=== PATIENT | female | born 1995 | race Caucasian/White ===

== ENCOUNTER 2018-06-16 11:45 | Emergency (ER) | payer SELFPAY ==
[2018-06-16 11:54] VITALS: BP 151/100
[2018-06-16] MEDS ORDERED: ACETAMINOPHEN 325 MG TABLET PO ONE (12:01)
[2018-06-16] MEDS ORDERED: IPRATROPIUM/ALBUTEROL 0.5-2.5 MG/3 ML AMPUL NEB ONE (12:04)
--- NOTE | 2018-06-16 12:07 | ER Document Report ---
HPI - HPI Time Seen by Provider: 06/16/18 12:00 Pain Level: Denies Notes: Patient is a 23-year-old female who presents to the ED complaining of nasal congestion/discharge, dry nonproductive cough, fever, body ache 3 days. She has had some posttussive emesis associated. Patient states that she is still eating and drinking without difficulties, but does have a decreased p.o. intake. She is still urinating normally having normal bowel movements. Patient has been u sing some [id number] meds for symptoms. She denies any significant past medical history including cardiopulmonary history and immunocompromised conditions aside from asthma hx. Patient denies any smoking or IV drug use. Patient requesting work note. Denies any current headache, neck pain, sore throat, chest pain, palpitations, syncope, shortness of breath, dyspnea, abdominal pain, nausea/diarrhea, urinary retention, dysuria, hematuria, or rash. - ROS Systems Reviewed and Negative: Yes All other systems reviewed and negative - REPRODUCTIVE LMP: now Reproductive: DENIES: : Past Medical History - Social History Smoking Status: Never Smoker Family History: Reviewed & Not Pertinent Vertical Provider Document - CONSTITUTIONAL Agree With Documented VS: Yes Notes: PHYSICAL EXAMINATION: GENERAL: Well-appearing, well-nourished and in no acute distress. A&Ox4. Answers questions appropriately. Moves comfortably w/o notable distress HEAD: Atraumatic, normocephalic. EYES: Pupils equal round and reactive to light, extraocular movements intact, sclera anicteric, conjunctiva are normal. ENT: EAC clear b/l. TM's intact b/l without erythema, fluid, or perforation. Nares patent and with clear discharge. oropharynx no erythema without exudates. No tonsilar hypertrophy without erythema or exudate. No palatine shift. Uvula midline. No tongue protrusion. No drooling, hoarseness, or airway compromise. Moist mucous membranes. No sinus tenderness. NECK: Normal range of motion, supple without lymphadenopathy. No rigidity/meningismus. LUNGS: Very minimal wheeze, expiratory. No crackles. No retractions HEART: Regular rate and rhythm without murmurs, rubs, gallops. ABDOMEN: Soft, nontender, nondistended abdomen. No guarding, no rebound. Normal bowel sounds present. No CVA tenderness bilaterally. NEUROLOGICAL: Normal speech, normal gait. Normal sensory, motor exams PSYCH: Normal mood, normal affect. SKIN: Warm, Dry, normal turgor, no rashes or lesions noted. - INFECTION CONTROL TRAVEL OUTSIDE OF THE [place] IN LAST 30 DAYS: No Course - Re-evaluation Re-evalutation: 06/16/18 12:40 Patient is an afebrile, well-hydrated, 23-year-old female who presents to the ED with acute URI, suspect influenza. Vitals are acceptable. PE is otherwise unremarkable. No labs or imaging warranted at this time based on H&P. Patient has no significant cardiopulmonary or immunocompromised medical conditions. Pt did receive a duoneb tx and tylenol. Patient's lungs are clear to auscultation bilaterally without tachycardia, hypoxia, or tachypnea. Patient is tolerating p.o. without any difficulties. Thoroughly reviewed the risks, benefits, potential side effects, estimated cost without insurance with patient. After thorough review, patient requested Tamiflu at this time. Low suspicion for any meningitis, sepsis, peritonsillar/pharyngeal abscess, respiratory compromise, severe dehydration, or other emergent systemic condition at this time. Patient is aware this condition can change from initial presentation and she needs to monitor symptoms closely. Conservative measures otherwise for symptoms. Pt has an inhaler at home. Recheck with your PCM in 3-5 days. Return to the ED with any worsening/concerning symptoms otherwise as reviewed in discharge. Patient is in agreement. - Vital Signs Vital signs: Temp Pulse Resp BP Pulse Ox 102.7 F H 91 24 H 151/100 H 99 06/16/18 11:52 06/16/18 11:52 06/16/18 11:52 06/16/18 11:52 06/16/18 11:52 Discharge - Discharge Clinical Impression: Acute URI Condition: Stable Disposition: HOME, SELF-CARE Additional Instructions: Maintain adequate fluid intake Take meds as directed tylenol/ibuprofen as needed over the counter cold medication as needed for symptoms Humidified air may help Wash your hands regularly Wear a mask when coughing F/u: with your PCM in 3-5 days for a recheck Return to the ED with any fever, worsening pain, chest pain, palpitations, syncope, worsening ABDUL, neck pain/stiffness, shortness of breath, wheezing, drooling, trouble swallowing/breathing, abdominal pain, n/v/d, rash, or worsening/concerning symptoms otherwise. Prescriptions: Ondansetron [Zofran Odt 4 mg Tablet] 1 - 2 tab PO Q4H PRN #15 tab.rapdis PRN Reason: For Nausea/Vomiting Oseltamivir Phosphate [Tamiflu 75 mg Capsule] 75 mg PO BID #10 capsule Forms: Return to Work Referrals: [facility] [Provider Group] - Follow up as needed [facility] [Provider Group] - Follow up as needed
== END 2018-06-16 12:10 | disposition home or self-care (01) ==
LOC: ER 11:45
DX: J06.9 Acute upper respiratory infection, unspecified (principal); R09.81 Nasal congestion; R09.89 Other specified symptoms and signs involving the circulatory and respiratory systems; R05 Cough; R50.9 Fever, unspecified; M79.10 Myalgia, unspecified site; R11.10 Vomiting, unspecified; R63.0 Anorexia
CPT/HCPCS: 94640; 99283; J7620

== ENCOUNTER 2018-06-19 11:50 | Emergency (ER) | payer SELFPAY ==
[2018-06-19] MEDS ORDERED: NORMAL SALINE 1000 ML 1,000 ML IV ONE (12:52)
[2018-06-19] MEDS ORDERED: METHYLPREDNISOLONE INJ 125 MG/2 ML SDV IV ONE (12:53)
[2018-06-19] MEDS ORDERED: MAGNESIUM SULFATE/D5W 1 GM/100 ML RTUPB IV ONE (12:53)
--- NOTE | 2018-06-19 12:55 | ER Document Report ---
ED General - General Chief Complaint: Flu Symptoms Stated Complaint: FLU SYMPTOMS Time Seen by Provider: 06/19/18 12:30 Primary Care Provider: [facility] [Provider Group] - Follow up as needed (Call for next available appointment.) Mode of Arrival: Ambulatory Information source: Patient Notes: This is a 23-year-old female with a history of asthma and a recent URI (treated for influenza) who presents to the emergency room with worsening shortness of br eath, wheezing and difficulty breathing. TRAVEL OUTSIDE OF THE [place] IN LAST 30 DAYS: No - HPI Onset: Last week Onset/Duration: Gradual Quality of pain: No pain Severity: None Pain Level: Denies Associated symptoms: Shortness of breath, Other. denies: Chest pain, Fever Exacerbated by: Movement Relieved by: Denies Similar symptoms previously: Yes Recently seen / treated by doctor: Yes - Related Data Allergies/Adverse Reactions: No Known Allergies Allergy (Verified 06/19/18 11:54) Past Medical History - General Information source: Patient - Social History Smoking Status: Never Smoker Cigarette use (# per day): No Chew tobacco use (# tins/day): No Frequency of alcohol use: None Drug Abuse: None Lives with: Spouse/Significant other Family History: Reviewed & Not Pertinent Patient has suicidal ideation: No Patient has homicidal ideation: No - Past Medical History Cardiac Medical History: Reports: None Pulmonary Medical History: Reports: Hx Asthma Neurological Medical History: Reports: None Endocrine Medical History: Reports: None Renal/ Medical History: Reports: None. Denies: Hx Peritoneal Dialysis GI Medical History: Reports: None Musculoskeletal Medical History: Reports None Skin Medical History: Reports None Psychiatric Medical History: Reports: None Traumatic Medical History: Reports: None Infectious Medical History: Reports: None Surgical Hx: Negative Review of Systems - Review of Systems Constitutional: Chills. denies: Fever EENT: Nose pain, Nose congestion Cardiovascular: denies: Chest pain, Palpitations, Heart racing Respiratory: Cough, Short of breath, Wheezing Gastrointestinal: denies: Abdomen distended, Abdominal pain, Diarrhea Genitourinary: No symptoms reported Female Genitourinary: No symptoms reported Musculoskeletal: No symptoms reported Skin: No symptoms reported Hematologic/Lymphatic: No symptoms reported Neurological/Psychological: No symptoms reported Physical Exam - Vital signs Vitals: Temp Pulse Resp BP Pulse Ox 98.3 F 104 H 18 134/98 H 95 06/19/18 11:53 06/19/18 11:53 06/19/18 11:53 06/19/18 11:53 06/19/18 11:53 Notes: Physical exam: GENERAL: A 23-year-old female, alert and oriented x3, wheezing HEAD: Atraumatic, normocephalic. EYES: Pupils equal round and reactive to light, extraocular movements intact, sclera anicteric, conjunctiva are normal. ENT: TMs normal, nares patent, oropharynx clear without exudates. Moist mucous membranes. NECK: Normal range of motion, supple without obvious mass or JVD. LUNGS: Bilateral wheezing HEART: Regular rate and rhythm without murmurs, rubs or gallops. ABDOMEN: Soft, normoactive bowel sounds. No tenderness to palpation. No guarding, no rebound. No masses appreciated. EXTREMITIES: Normal range of motion, no pitting or edema. No clubbing or cyanosis. NEUROLOGICAL: Cranial nerves II through XII grossly intact. Normal speech, moving all extremities. PSYCH: Normal mood, normal affect. SKIN: Warm, Dry, normal turgor, no rashes or lesions noted. Course - Re-evaluation Re-evalutation: 06/19/18 18:05 Patient reevaluated after nebulizers, IV steroids, IV magnesium: Patient states she feels much better. She has ambulated around the ER. Lung exam much improved. Patient states she is feels good enough to go home. We will send her home on antibiotics, steroids, albuterol inhaler. She does have a nebulizer at home. - Vital Signs Vital signs: Temp Pulse Resp BP Pulse Ox 98.3 F 104 H 18 134/98 H 95 06/19/18 11:53 06/19/18 11:53 06/19/18 11:53 06/19/18 11:53 06/19/18 11:53 - Laboratory Result Diagrams: 06/19/18 13:34 06/19/18 13:34 Laboratory results interpreted by me: 06/19/18 13:34 RDW 14.7 H - Diagnostic Test Radiology reviewed: Image reviewed, Reports reviewed - Chest x-ray shows early infiltrate on lateral film Discharge - Discharge Clinical Impression: Asthma exacerbation, Pneumonia Condition: Stable Disposition: HOME, SELF-CARE Additional Instructions: As we discussed, the chest x-ray showed evidence of an early pneumonia. I want you to take the antibiotics as prescribed: Start tomorrow (you were given today's dose in the ER). Take the prednisone which is a steroid as prescribed (start tomorrow, you given today's dose in the ER). Continue albuterol nebulizers as needed. Use the albuterol inhaler as needed. Return to the emergency room for worsening shortness of breath, difficulty breathing or any concerns or getting worse. Prescriptions: Azithromycin [Zithromax 250 mg Tablet] 250 mg PO ASDIR PRN #6 tablet PRN Reason: Prednisone [Deltasone 20 mg Tablet] 3 tab PO DAILY 5 Days tablet Forms: Return to Work Referrals: [facility] [Provider Group] - Follow up as needed (Call for next available appointment.)
[2018-06-19] MEDS ORDERED: IPRATROPIUM/ALBUTEROL 0.5-2.5 MG/3 ML AMPUL NEB ONE ×3 (13:15→16:46)
--- NOTE | 2018-06-19 13:24 | RADIOLOGY REPORT (SQ) ---
EXAM DESCRIPTION: CHEST 2 VIEWS COMPLETED DATE/TIME: 06/19/2018 1:05 pm REASON FOR STUDY: sob COMPARISON: None. EXAM PARAMETERS: NUMBER OF VIEWS: two views TECHNIQUE: Digital Frontal and Lateral radiographic views of the chest acquired. RADIATION DOSE: NA LIMITATIONS: none FINDINGS: LUNGS AND PLEURA: Patchy increased density in the left mid-lower lung zones, suggest infi ltrates. The right lung is clear. No pneumothorax or pleural effusion. MEDIASTINUM AND HILAR STRUCTURES: No masses or contour abnormalities. HEART AND VASCULAR STRUCTURES: Heart normal size. No evidence for failure. BONES: No acute findings. HARDWARE: None in the chest. OTHER: No other significant finding. IMPRESSION: 1. Patchy increased densities in the left mid-lower lung zones, suggest infiltrates. COMMENT: 1. The results of this examination were discussed with emergency department provider on 04/2019 at 13:18 hours. TECHNICAL DOCUMENTATION: JOB ID: [id number] [employer]- All Rights Reserved Reading location - IP/workstation name: [email or web address]
[2018-06-19 13:41] LABS: ABSOLUTE EOSINOPHILS # (AUTO) 0.1 10^3/uL (0.0-0.6); ABSOLUTE LYMPHOCYTES (AUTO) 1.2 10^3/uL (0.5-4.7); ABSOLUTE MONOCYTES (AUTO) 0.6 10^3/uL (0.1-1.4); ABSOLUTE NEUT (AUTO) 6.7 10^3/uL (1.7-8.2); BASOPHILS % (AUTO) 0.3 % (0-2); EOSINOPHILS % (AUTO) 1.2 % (0-6); HEMATOCRIT 36.7 % (36.0-47.0); HEMOGLOBIN 12.4 g/dL (12.0-15.5); LYMPHOCYTES % (AUTO) 13.6 % (13-45); MEAN CORPUSCULAR HEMOGLOBIN 27.2 pg (27.0-33.4); MEAN CORPUSCULAR HGB CONC 33.6 g/dL (32.0-36.0); MEAN CORPUSCULAR VOLUME 81 fl (80-97); MONOCYTES % (AUTO) 7.4 % (3-13); PLATELET COUNT 260 10^3/uL (150-450); RED BLOOD COUNT 4.54 10^6/uL (3.72-5.28); RED CELL DISTRIBUTION WIDTH 14.7 % (11.5-14.0); SEGMENTED NEUTROPHILS % (AUTO) 77.5 % (42-78); TOTAL CELLS COUNTED % (AUTO) 100 %; WHITE BLOOD COUNT 8.7 10^3/uL (4.0-10.5)
[2018-06-19 13:52] LABS: ALANINE AMINOTRANSFERASE 23 U/L (9-52); ALBUMIN 4.5 g/dL (3.5-5.0); ALKALINE PHOSPHATASE 71 U/L (38-126); ANION GAP 13 (5-19); ASPARTATE AMINO TRANSFERASE 35 U/L (14-36); BILIRUBIN,DIRECT 0.2 mg/dL (0.0-0.4); BILIRUBIN,TOTAL 0.3 mg/dL (0.2-1.3); BLOOD UREA NITROGEN 9 mg/dL (7-20); CALCIUM 9.5 mg/dL (8.4-10.2); CARBON DIOXIDE 27 mmol/L (22-30); CHLORIDE 102 mmol/L (98-107); GLUCOSE 93 mg/dL (75-110); POTASSIUM 4.5 mmol/L (3.6-5.0); SODIUM 141.7 mmol/L (137-145); TOTAL PROTEIN 7.8 g/dL (6.3-8.2)
[2018-06-19] MEDS ORDERED: AZITHROMYCIN 250 MG TABLET PO ONE (17:58)
[2018-06-19] MEDS ORDERED: ALBUTEROL SULFATE HFA (90 MCG/PUFF) 8 GM MDI (1 MDI/ER DISP) IH PRN (18:00)
[2018-06-19 18:09] VITALS: BP 138/88
== END 2018-06-19 18:08 | disposition home or self-care (01) ==
LOC: ER 11:50
DX: J45.901 Unspecified asthma with (acute) exacerbation (principal); J18.9 Pneumonia, unspecified organism; R06.02 Shortness of breath; R05 Cough; R68.83 Chills (without fever)
CPT/HCPCS: 94640 ×2; 99285; 96361; 96374; 96375; 36415; 84702; 85025; 80053; 71046; J2930; J3475; J7030; J3490; J7620

== ENCOUNTER 2018-09-04 13:30 | Emergency (ER) | payer SELFPAY ==
[2018-09-04 13:41] VITALS: BP 142/102
[2018-09-04] MEDS ORDERED: DIPH/PERTUSS(ACELL)/TETANUS VAC/PF 0.5 ML SYR (>=10YO) IM ONE (15:28)
[2018-09-04] MEDS ORDERED: IBUPROFEN 800 MG TABLET PO ONE (15:28)
--- NOTE | 2018-09-04 15:31 | ER Document Report ---
HPI - HPI Patient complains to provider of: Burn to left hand Time Seen by Provider: 09/04/18 15:10 Onset: This afternoon Onset/Duration: Sudden Quality of pain: Burning Pain Level: 5 Context: Patient states she was removing soup from the microwave and it slid off the plate burning the left palm of her hand. Patient with erythema to palmar surface of her left hand. Associated Symptoms: Other - Left hand burn Exacerbated by: Denies Relieved by: Denies Similar symptoms previously: No Recently seen / treated by doctor: No - ROS ROS below otherwise negative: Yes Systems Reviewed and Negative: Yes All other systems reviewed and negative - NEURO Neurology: DENIES: Weakness - GASTROINTESTINAL Gastrointestinal: DENIES: Nausea - REPRODUCTIVE Reproductive: DENIES: : - MUSCULOSKELETAL Musculoskeletal: REPORTS: Extremity pain. DENIES: Swelling - DERM Skin Color: Erythema Skin Problems: None Past Medical History - General Information source: Patient - Social History Smoking Status: Never Smoker Frequency of alcohol use: None Drug Abuse: None Occupation: Customer service Family History: Reviewed & Not Pertinent Pulmonary Medical History: Reports: Hx Asthma Renal/ Medical History: Denies: Hx Peritoneal Dialysis Past Surgical History: Reports: Hx Section Vertical Provider Document - CONSTITUTIONAL Agree With Documented VS: Yes Exam Limitations: No Limitations General Appearance: WD/WN, No Apparent Distress - INFECTION CONTROL TRAVEL OUTSIDE OF THE [place] IN LAST 30 DAYS: No - HEENT HEENT: Atraumatic, Normocephalic - NECK Neck: Normal Inspection - RESPIRATORY Respiratory: No Respiratory Distress - CARDIOVASCULAR Pulses: Normal: Radial - MUSCULOSKELETAL/EXTREMETIES Musculoskeletal/Extremeties: MAEW, FROM, Tender - Left hand, No Edema - NEURO Level of Consciousness: Awake, Alert, Appropriate Motor/Sensory: No Motor Deficit - DERM Integumentary: Warm, Dry Notes: Patient with superficial burn to palmar aspect of left hand. No blistering. Course - Re-evaluation Re-evalutation: 09/04/18 15:38 Patient with superficial burn to left hand. Discussed with patient wound management as well as importance of range of motion activities. Patient given contact information for the wound clinic for follow-up. - Vital Signs Vital signs: Temp Pulse Resp BP Pulse Ox 98.6 F 92 16 142/102 H 95 09/04/18 13:40 09/04/18 13:40 09/04/18 13:40 09/04/18 13:40 09/04/18 13:40 Discharge - Discharge Clinical Impression: Burn of left hand Qualifiers: Encounter type: initial encounter Burn of hand location: unspecified site Burn degree: superficial (1st degree) Qualified Code(s): T23.102A - Burn of first degree of left hand, unspecified site, initial encounter Condition: Stable Disposition: HOME, SELF-CARE Instructions: [place] ([facility]), Tetanus Immunization Given ([facility], [facility]) Additional Instructions: Return immediately for any new or worsening symptoms Followup with your primary care provider, call tomorrow to make a followup appointment Apply thin layer of ointment to wound and keep wound covered as it continues to heal. Perform full range of motion movements to the hand. Follow-up with the wound clinic for a recheck, call tomorrow for an appointment Prescriptions: Mupirocin [Bactroban 2% Ointment 22 gm] 1 applic TP TID #22 gm Naproxen [Naprosyn 250 Nmg Tablet] 1 tab PO BID #14 tablet Forms: Return to Work Referrals: [facility] [Provider Group] - Follow up tomorrow
== END 2018-09-04 16:10 | disposition home or self-care (01) ==
LOC: ER 13:30
DX: T23.152A Burn of first degree of left palm, initial encounter (principal); X19.XXXA Contact with other heat and hot substances, initial encounter; Y93.G3 Activity, cooking and baking; J45.909 Unspecified asthma, uncomplicated
CPT/HCPCS: 90471; 90715; 99283

== ENCOUNTER 2019-05-01 13:27 | Emergency (ER) | payer BC, MEDICAID ==
[2019-05-01] MEDS ORDERED: ACETAMINOPHEN 325 MG TABLET PO ONE (13:42)
--- NOTE | 2019-05-01 13:43 | ER Document Report ---
ED Medical Screen (RME) - General Chief Complaint: Leg Pain Stated Complaint: RIGHT LEG PAIN Time Seen by Provider: 05/01/19 13:37 Primary Care Provider: TOBY VAN PA-C [Primary Care Provider] - Follow up as needed Notes: Patient is a 23-year-old female presents to the emergency department with a chief complaint of right posterior ankle pain. She states that her symptoms started about a week ago. Her pain has gotten progressively worse. Denies any actual injury. Exam: Tenderness noted to the right Achilles tendon area. I have greeted and performed a rapid initial assessment of this patient. A comprehensive ED assessment and evaluation of the patient, analysis of test results and completion of medical decision making process will be conducted by an additional ED providers. TRAVEL OUTSIDE OF THE [place] IN LAST 30 DAYS: No - Related Data Allergies/Adverse Reactions: No Known Allergies Allergy (Verified 05/01/19 13:32) Past Medical History Pulmonary Medical History: Reports: Hx Asthma Renal/ Medical History: Denies: Hx Peritoneal Dialysis Past Surgical History: Reports: Hx Section Physical Exam - Vital signs Vitals: Temp Pulse Resp BP Pulse Ox 98.3 F 105 H 20 147/90 H 97 05/01/19 13:30 05/01/19 13:30 05/01/19 13:30 05/01/19 13:30 05/01/19 13:30 Course - Vital Signs Vital signs: Temp Pulse Resp BP Pulse Ox 98.3 F 105 H 20 147/90 H 97 05/01/19 13:30 05/01/19 13:30 05/01/19 13:30 05/01/19 13:30 05/01/19 13:30 Doctor's Discharge - Discharge Referrals: TOBY VAN PA-C [Primary Care Provider] - Follow up as needed
--- NOTE | 2019-05-01 14:07 | RADIOLOGY REPORT (SQ) ---
EXAM DESCRIPTION: ANKLE RIGHT COMPLETE COMPLETED DATE/TIME: 05/01/2019 1:55 pm REASON FOR STUDY: right ankle pain COMPARISON: None. NUMBER OF VIEWS: Three views. TECHNIQUE: AP, lateral, and oblique radiographic images acquired of the right ankle. LIMITATIONS: None. FINDINGS: MINERALIZATION: Normal. BONES: No acute fracture or dislocation. No worrisome bone lesions. JOINTS: No effusions. SOFT TISSUES: No soft tissue swelling. No foreign body. OTHER: No other significant finding. IMPRESSION: No fracture or dislocation of the right ankle. No radiographic findings to explain pain . TECHNICAL DOCUMENTATION: JOB ID: [id number] [employer]- All Rights Reserved Reading location - IP/workstation name: [email or web address]
--- NOTE | 2019-05-01 15:01 | RADIOLOGY REPORT (SQ) ---
EXAM DESCRIPTION: U/S EXTREMITY NONVASCULAR LTD COMPLETED DATE/TIME: 05/01/2019 2:30 pm REASON FOR STUDY: Achilles tendon pain COMPARISON: None. TECHNIQUE: Dynamic and static grayscale images acquired of the localized site of clinical concern an d recorded on PACS. Additional selected color Doppler and spectral images recorded. SITE OF CONCERN: Right Achilles tendon. LIMITATIONS: None. FINDINGS: Imaging of the right Achilles tendon shows no disruption of the tendon. There is no signi ficant fluid in the tendon sheath. IMPRESSION: Normal Achilles tendon. TECHNICAL DOCUMENTATION: JOB ID: [id number] [employer]- All Rights Reserved Reading location - IP/workstation name: [email or web address]
--- NOTE | 2019-05-01 17:23 | ER Document Report ---
ED General - General Chief Complaint: Ankle Pain Stated Complaint: RIGHT LEG PAIN Time Seen by Provider: 05/01/19 13:37 Primary Care Provider: TOBY VAN PA-C [Primary Care Provider] - Follow up as needed TRAVEL OUTSIDE OF THE [place] IN LAST 30 DAYS: No - HPI Notes: 24F w/o other established pmh, and who's been otherwise healthy, presents today to ED ambulatory in private vehicle avoiding full weight bearing to RLE since she's noticed gradual onset R posterior ankle pain and lower calf pain in last 2-3 days. works in [employer] kitchen and thinks maybe it's worse after a shift at work in which she's had to stand up for long periods, but doesn't recall inciting acute onset or preceding activity or trauma. no color changes or sensory changes or weakness. has been cont to bear weight but trying to offload some by limping mostly today and last night b/c seems gradually worse. no overlying skin changes denies local or systemic signs of infection on full review. doens't feel ankle itself is unstable. no pain at knee/hip. deneis prior orthopedic injuries or interventions/surgeries. - Related Data Allergies/Adverse Reactions: No Known Allergies Allergy (Verified 05/01/19 13:32) Home Medications: Iron Past Medical History - General Information source: Patient - Social History Smoking Status: Never Smoker Chew tobacco use (# tins/day): No Frequency of alcohol use: None Drug Abuse: None Family History: Reviewed & Not Pertinent Patient has suicidal ideation: No Patient has homicidal ideation: No Pulmonary Medical History: Reports: Hx Asthma Renal/ Medical History: Denies: Hx Peritoneal Dialysis Past Surgical History: Reports: Hx Section Review of Systems - Review of Systems Constitutional: No symptoms reported EENT: No symptoms reported Cardiovascular: No symptoms reported Respiratory: No symptoms reported Gastrointestinal: No symptoms reported Genitourinary: No symptoms reported Female Genitourinary: No symptoms reported Musculoskeletal: See HPI Skin: No symptoms reported Hematologic/Lymphatic: No symptoms reported Neurological/Psychological: No symptoms reported Physical Exam - Vital signs Vitals: Temp Pulse Resp BP Pulse Ox 98.3 F 105 H 20 147/90 H 97 05/01/19 13:30 05/01/19 13:30 05/01/19 13:30 05/01/19 13:30 05/01/19 13:30 Interpretation: Normal - General General appearance: Appears well, Alert - HEENT Head: Normocephalic, Atraumatic Eyes: Normal Pupils: PERRL - Respiratory Respiratory status: No respiratory distress Chest status: Nontender Breath sounds: Normal Chest palpation: Normal - Cardiovascular Rhythm: Regular Heart sounds: Normal auscultation Murmur: No - Abdominal Inspection: Normal Distension: No distension Bowel sounds: Normal Tenderness: Nontender Organomegaly: No organomegaly - Back Back: Normal, Nontender - Extremities General upper extremity: Normal inspection, Nontender, Normal color, Normal ROM, Normal temperature General lower extremity: Normal color, Normal temperature Shoulder: Normal Arm: Normal Elbow: Normal Forearm: Normal Wrist: Normal Hand: Normal Hip: Normal Thigh: Normal Knee: Normal. No: Tender, Instability, Joint effusion, Pain with ROM, Popliteal fossa tender - no mass in popliteal region., Unable to bear weight Calf: Tender - most distal aspect of gastroc insertion and along R achilles mild ttp + very mild swelling c/t opposite side, w/o overlying skin changes/warmth.. No: Abrasion, Ecchymosis, Laceration, Unable to bear weight Ankle: Normal, Tender. No: Deformity, Ecchymosis, Edema, Instability, Limited ROM, Positive Pope's test, Unable to bear weight - observed her: able to fully bear weight w/o pain or ankle/knee instability, but to demonstrate gait avoids flexion and extension R ankle b/c of posterior only (achilles and calf) pain Foot: Normal, Nontender. No: Abrasion, Deformity, Ecchymosis, Edema, Instability, No evidence of FB, Puncture wound - Neurological Neuro grossly intact: Yes Cognition: Normal Orientation: AAOx4 Gretel Coma Scale Eye Opening: Spontaneous Gretel Coma Scale Verbal: Oriented Gretel Coma Scale Motor: Obeys Commands Gretel Coma Scale Total: 15 Speech: Normal Motor strength normal: LUE, RUE, LLE, RLE Sensory: Normal - Psychological Associated symptoms: Normal affect, Normal mood - Skin Skin Temperature: Warm Skin Moisture: Dry Skin Color: Normal Course - Re-evaluation Re-evalutation: Xray multiview of R ankle wnl as well as ultrasound R achilles tendon appears w nl. please see additional d/c instruction section below re: d/c planning i performed verbally and gave written format as well w/ patient. - Vital Signs Vital signs: Temp Pulse Resp BP Pulse Ox 98.2 F 88 16 142/74 H 98 05/01/19 18:56 05/01/19 18:56 05/01/19 18:56 05/01/19 18:56 05/01/19 18:56 Discharge - Discharge Clinical Impression: Strain of Achilles tendon Qualifiers: Encounter type: initial encounter Laterality: right Qualified Code(s): S86.011A - Strain of right Achilles tendon, initial encounter Condition: Good Disposition: HOME, SELF-CARE Additional Instructions: Today in the emergency department your x-rays were negative and your ultrasound was negative for any Achilles tendon rupture or tear. On my examination your Achilles tendon looks intact but you do have some minor swelling on the outer side of your Achilles but your tendons and ligaments on exam are all intact and working and her strength is within normal limits therefore think you have a Achilles strain and possibly some involvement of your calf muscle therefore you can wear the postop shoe to avoid over straining and this next few days. Try to intermittently during your shift tomorrow elevate your leg above heart level so that the swelling can at least try to come down. Take ibuprofen 600 every 6 hours with food and drink if you can to maintain baseline level of pain control and as anti-inflammatory. When you are elevating your leg you can also put an ice pack on for a few minutes couple times a day for the next few days as well to decrease inflammation try to move it around as tolerated but do not do anything that strains it or makes it worse. Avoid any running right now in the next few days or activities that stretch the back of your heel extremely. Prescriptions: Ibuprofen 600 mg PO Q6HP PRN 3 Days #30 tablet PRN Reason: Pain Scale Of 1 Forms: Return to Work Referrals: TOBY VAN PA-C [Primary Care Provider] - Follow up as needed
[2019-05-01 18:57] VITALS: BP 142/74
== END 2019-05-01 18:56 | disposition home or self-care (01) ==
LOC: ER 13:27
DX: S86.011A Strain of right Achilles tendon, initial encounter (principal); X58.XXXA Exposure to other specified factors, initial encounter; Z79.899 Other long term (current) drug therapy; J45.909 Unspecified asthma, uncomplicated
CPT/HCPCS: 76882; 99283

== ENCOUNTER → 2019-12-02 | Outpatient (CLI) | payer MEDICAID ==
--- NOTE | 2019-12-02 10:03 | RADIOLOGY REPORT (SQ) ---
EXAM DESCRIPTION: CHEST PA/LATERAL IMAGES COMPLETED DATE/TIME: 12/02/2019 9:33 am REASON FOR STUDY: COUGH COMPARISON: 06/19/2018 EXAM PARAMETERS: NUMBER OF VIEWS: two views TECHNIQUE: Digital Frontal and Lateral radiographic views of the chest acquired. RADIATION DOSE: NA LIMITATIONS: none FINDINGS: LUNGS AND PLEURA: No opacities, masses or pneumothorax. No pleural effusion. MEDIASTINUM AND HILAR STRUCTURES: No masses or contour abnormalities. HEART AND VASCULAR STRUCTURES: Heart normal size. No evidence for failure. BONES: No acute findings. HARDWARE: None in the chest. OTHER: No other significant finding. IMPRESSION: NO SIGNIFICANT RADIOGRAPHIC FINDING IN THE CHEST. TECHNICAL DOCUMENTATION: JOB ID: [id number] 2010 [employer]- All Rights Reserved Reading location - IP/workstation name: [email or web address]
== END ==
LOC: RAD 09:14
PROVIDERS: ATTEND Nurse Practitioner Family
DX: R05 Cough (principal)
CPT/HCPCS: 71046